=== PATIENT | male | born 1975 | race Caucasian/White ===

== ENCOUNTER 2021-06-04 18:01 | Outpatient (REF) | payer BC, SELFPAY ==
[2021-06-06 12:13] LABS: COVID-19 RT-PCR UVMMC Result Negative (Negative)
== END 2021-06-04 18:02 | disposition home or self-care (01) ==
LOC: LBN 18:01
PROVIDERS: PCP Family Medicine; Visit Provider Physician Assistant Medical
DX: Z20.822 Contact with and (suspected) exposure to COVID-19 (principal); J06.9 Acute upper respiratory infection, unspecified
CPT/HCPCS: U0003

== ENCOUNTER 2022-04-24 10:20 | Emergency (ER) | payer BC, SELFPAY ==
[2022-04-24 10:24] VITALS: BP 123/73; PULSE 64; RESP 18; TEMP 36.5; O2SAT 98
--- NOTE | 2022-04-24 10:40 | ED.GENADUL_ITS ---
Discharge Plan Disposition Patient Disposition: Home Discharge Details Clinical Impression: Laceration of right hand, Immunization, tetanus-diphtheria Primary Care Provider: Kimmy Manning ED Provider: Willie Mcintosh Home Meds and New Rx's Prescriptions: No Action No Known Home Meds Discharge Instructions Instructions: Laceration (ED) Additional Instructions: Please read all of the information that accompanies these instructions. You were seen in the emergency department for your hand laceration which was closed in the emergency department. Your tetanus was updated. Please schedule an appointment with your primary care provider next week to have your stitches bhupendra keshawn. Please return to the emergency department if if you develop any fevers foul-smelling drainage from your laceration or if you have any other concerns. For your pain please take medications as follows: 1. Take acetaminophen (Tylenol), 1,000 mg (two 500 mg tabs) every 6 hours 2. Take ibuprofen (Advil), 400 mg every 6 hours. Medical Decision Making This is an overall well-appearing normothermic and not tachycardic [id number] 47-year-old male with dominant right hand laceration which will require primary closure. He does not appear to have any obvious tendon disruption. Will obtain plain films to ensure that he does not have any retained foreign body given laceration sustained on glass window. Will update tetanus status. We will closed with nonabsorbable sutures and provide return indications including any purulent drainage any fevers or any other concerns. 1:[address] to [address] Miller from orthopedics evaluated the patient's laceration and felt that it would be amenable to primary closure and that there is no sign of extensor tendon injury. Patient had a vasovagal syncopal episode while I was suturing his hand. He had received oxycodone. We were in a room that was quite warm. Patient was wheeled to a cooler room and felt improved. He passed a p.o. challenge prior to discharge. Orthopedics evaluated his hand and felt that it was appropriate for primary closure. Will provide a splint that is removable to use as needed. I have given patient return indications. HPI General Date/Time Provider Initiated Documentation: 04/24/22 10:40 . HPI Narrative: This is a jiheh-[id number] otherwise healthy 47-year-old male arriving to the emergency department after an injury he sustained to his right hand earlier this morning. [place] and put his right hand through a plate glass window. He did not hit his head. He did not lose consciousness. He denies any preceding chest pain nausea and vomiting. He does not know when his last tetanus was. He denies any other injuries. Related Data Home Medications Medication Instructions Recorded Confirmed Unknown [No Known Home Meds] 06/20/16 04/24/22 Allergies Allergy/AdvReac Type Severity Reaction Status Date / Time Penicillins Allergy Severe Swelling/Ed Unverified 04/24/22 10:27 chloe General Stated Complaint: Laceration RUFINA: 4 [facility] All Active Problems (Updated 04/24/22 @ 10:54 by Willie Mcintosh MD) Laceration of right hand (Acute) Immunization, tetanus-diphtheria (Acute) Social History Smoking/Tobacco Use Status: Never Smoking risk assessment performed?: Yes Alcohol Intake: current Alcohol Intake frequency: holidays/special occasions only Alcohol type: beer Substance use type: does not use Do you feel safe in your relationship?: Yes Exam Narrative Exam Narrative: General: Well-appearing in no acute distress speaking in complete sentences. Head: Normocephalic, atraumatic Ear, nose, mouth, throat: Grossly normal inspection. Normal voice, handling secretions normally. Neck: Trachea midline. Cardiovascular: Well-perfused distal extremities. Respiratory: Nonlabored respiration. Gastrointestinal: Nondistended abdomen. Musculoskeletal: Right hand with approximately 4-1/2 cm soft tissue laceration on the dorsal surface with visible extensor tendons which are not lacerated. Laceration is hemostatic. Patient has full flexion extension function intact across the MCP PIP and DIP joints of his index long ring and little fingers of his right hand. Full range of motion in right thumb. Digits are warm and well- perfused with cap refill less than 2 seconds. 2+ radial pulse. No volar lacerations. Skin: Normal for age and race, grossly normal temperature and turgor. No acute rash. Neurologic: Alert and appropriate, no apparent acute deficits. Psychiatric: Mood and manner are appropriate. Grooming and personal hygiene are appropriate. Course Vital Signs Vital signs: Vital Signs Temperature 36.5 C 04/24/22 10:24 Pulse 64 04/24/22 10:24 Respiratory Rate 18 04/24/22 10:24 Blood Pressure 123/73 04/24/22 10:24 Pulse Oximetry 98 04/24/22 10:24 Temperature 36.5 C 04/24/22 10:24 Temperature Source Oral 04/24/22 10:24 Pulse 64 04/24/22 10:24 Respiratory Rate 18 04/24/22 10:24 Respiratory Effort Normal 04/24/22 10:27 Blood Pressure 123/73 04/24/22 10:24 Blood Pressure Position Sitting 04/24/22 10:24 Pulse Oximetry 98 04/24/22 10:24 Oxygen Delivery Method Room Air 04/24/22 10:24 Oxygen Flow Rate 0 04/24/22 10:24 Pain Level 8 04/24/22 10:24 Procedures Laceration Laceration 1: Site: hand Side (If applicable): right Size (cm): 4.5 Description: linear Local Anesthetic: with Epi Amount of anesthesia used (mL): 10 Pre-repair: irrigated extensively Skin layer closed with: other (5-0 Prolene) Size (cm): 5-0 Number of sutures: 8 Technique: simple, interrupted and other (3 vertical mattress sutures flanked by 5 simple interrupted sutures for a total of 8 sutures)
--- NOTE | 2022-04-24 10:45 | DI.RAD_ITS ---
Exam(s) XR HAND RT COMPLETE EXAM: XR HAND RT COMPLETE CLINICAL HISTORY: Fall through window concerning for foreign body. TECHNIQUE: 2D digital imaging was performed. Three views. COMPARISON: No exams were available for comparison FINDINGS: BONES: No acute fracture is present. No bony destructive lesion is seen. JOINTS: No dislocation present. SOFT TISSUE: Some air is noted within the soft tissues of the dorsum of the hand. No radiopaque fore ign body is visible. IMPRESSION: Soft tissue swelling. DATA REPOSITORY: RADIATION DOSE DELIVERED:
[2022-04-24] MEDS: Lidocaine/Epinephri/Tetracaine Topical Gel 3 ML TP (11:15)
[2022-04-24] MEDS: Acetaminophen 500 MG TAB 1000 MG PO (11:17)
[2022-04-24] MEDS: Ibuprofen 600 MG TAB PO (11:18)
[2022-04-24] MEDS: oxyCODONE 5 MG TAB PO (11:19)
[2022-04-24 13:14] VITALS: BP 104/59; PULSE 62; RESP 20; O2SAT 98
[2022-04-24 14:03] VITALS: BP 115/65; PULSE 68; RESP 16; TEMP 36.3; O2SAT 98
== END 2022-04-24 14:05 | disposition home or self-care (01) ==
PROVIDERS: Emergency Provider Emergency Medicine; PCP Family Medicine
DX: S61.411A Laceration without foreign body of right hand, initial encounter (principal); W01.110A Fall on same level from slipping, tripping and stumbling with subsequent striking against sharp glass, initial encounter; R55 Syncope and collapse
CPT/HCPCS: 12002; 90471; 99284; 73130

== ENCOUNTER 2023-07-12 05:00 | Outpatient (CLI) | payer BC, SELFPAY ==
[2023-07-12 07:55] LABS: Abs Immature Grans 0.02 10^3/uL (0.0-0.06); Absolute Basophil Count 0.06 10^3/uL (0.0-0.2); Absolute Eosinophil Count 0.17 10^3/uL (0.0-0.7); Absolute Lymphocyte Count 1.71 10^3/uL (1.2-3.4); Absolute Monocyte Count 0.42 10^3/uL (0.1-0.8); Absolute Neutrophil Count 3.02 10^3/uL (1.2-6.7); Basophils % 1.1 %; Eosinophils % 3.1 %; HGB 14.8 g/dL (13.5-17.5); Immature Grans % 0.4 %; Lymphocytes % 31.7 %; MCH 30.1 pg (27.0-33.0); MCHC 33.6 % (32.0-36.0); MCV 90 fL (80-95); MPV 9.7 fL (8.0-11.0); Monocytes % 7.8 %; Neutrophils % 55.9 %; Platelet Count 249 10^3/uL (130-400); RBC 4.91 10^6/uL (4.36-5.78); RDW 11.7 % (11.8-14.1)
[2023-07-12 08:31] LABS: ALT 30 U/L (16-63); AST 19 U/L (15-37); Albumin 4.1 g/dL (3.4-5.0); Alkaline Phosphatase 53 U/L (46-116); Anion Gap 5.2 mmol/L (3-11); BUN 26 mg/dL (7-18); Bilirubin, Total 0.5 mg/dL (0.2-1.0); CO2 32.8 mmol/L (21.0-32.0); Calcium 9.1 mg/dL (8.5-10.1); Calculated LDL 120 mg/dL (<100); Chloride 105 mmol/L (98-107); Cholesterol 193 mg/dL (<200); Estimated GFR 92.26 (mL/min/1.73m2); Glucose 115 mg/dL (74-106); HDL Cholesterol 67 mg/dL (40-60); Potassium 4.5 mmol/L (3.5-5.1); Sodium 143 mmol/L (136-145); TSH 1.69 uIU/Ml (0.36-3.74); Total Protein 7.1 g/dL (6.4-8.2); Triglyceride 34 mg/dL (<150)
== END 2023-07-12 05:01 | disposition home or self-care (01) ==
PROVIDERS: PCP Family Medicine; Visit Provider Internal Medicine
DX: Z00.00 Encounter for general adult medical examination without abnormal findings (principal)
CPT/HCPCS: 36415; 80053; 80061; 84443; 85025

== ENCOUNTER 2024-10-03 07:37 | Day surgery (SDC) | payer BC, SELFPAY ==
--- NOTE | 2024-10-02 19:12 | W.PM.DSUDISC ---
Date of service: 10/03/24 Discharge Plan Disposition Patient Disposition: Home Condition: Good Discharge Details Reason For Visit: screening colonoscopy Attending Provider: Seven Gaspar Primary Care Provider: Sam Myers Home Meds and New Rx's Prescriptions: Continued loratadine [Claritin] 10 mg tablet 10 mg PO DAILY fluticasone propionate [Flonase Allergy Relief] 50 mcg/actuation spray,suspension 1 spray intranasal DAILY PRN Rx Instructions: administer into each nostril Discontinued bisacodyl [Dulcolax (bisacodyl)] 5 mg tablet,delayed release (DR/EC) 5 mg PO ONCE Qty: 4 0RF Rx Instructions: Take per colonoscopy instructions provided by ordering providers office polyethylene glycol 3350 17 gram/dose powder 17 g PO ONCE Qty: 238 0RF Rx Instructions: Take per colonoscopy instructions provided by ordering providers office Discharge Instructions Instructions: Colon polyps Additional Instructions: Willem, it was very nice meeting you today, and I hope you feel well after the procedure. Things went very smoothly. Your prep was excellent and I could see everything fine. I did find, and remove 1 tiny bit of tissue today. To be honest with you on the little skeptical that this is actually a polyp. Regardless, to be safe, I will send this off to the pathologist for them to review. If it does rim turning machine operator to be a polyp, we will use that information to guide the timing of future colonoscopies. Those results will take about a week or 2 to get back, but once my office has sent we will be in touch with recommendations. If you need anything or have any questions at all, please do not hesitate to ask at any time. 1. If tolerated, consume a soft, low fiber diet for 1-2 days. 2[address] Do not drive, drink alcohol, operate machinery, make critical decisions, or do activities that require coordination or balance for 24 hours. 3. Because air was put into your colon during the procedure, expelling air from your rectum (passing gas or farting) is normal. 4. You may not have a bowel movement for 1-3 days because of the colonoscopy prep. This is normal. 5. Go directly to the emergency room if you notice any of the following: Develop chills (warm to touch), or if you have a thermometer and your temperature is above 101 Difficulty breathing or difficultly swallowing Persistent vomiting Severe abdominal pain, other than gas cramps Severe chest pain Black, tarry stools Any bleeding ? exceeding one tablespoon 6. Call your physician if the site where your intravenous was started becomes red, swollen, painful, and warm to touch. 7. Your physician has reviewed your pre-procedure medications. Please continue to take those medications as previously ordered. You will be given specific information/education regarding any changes to your medications before leaving. Stand Alone Forms: Anesthesia Discharge InstOsvaldo Rdz (DSU) Activity:: Activity as Tolerated Diet:: As Tolerated Discharge Orders Discharge Orders: Discharge Order (Routine); Ordered 10/02/24 Ordered By: Seven Gaspar DS: Diagnosis Discharge Diagnosis (1) Encounter for screening colonoscopy: Status: Acute Asessment and Plan: Follow-up on polypectomy results
--- NOTE | 2024-10-02 19:13 | W.COLOREPORT ---
Date of service: 10/03/24 Time of Service: 09:37 Colonoscopy Report Date of procedure: 10/03/24 Pre-op diagnosis general: screening colonoscopy Post-op diagnosis procedure note: other (Colon polyp) Procedure: colonoscopy with polypectomy Surgeon: Seven Gaspar Anesthesia Type: General:No Airway Estimated blood loss (mL): 5 Pathology: other (0.25 cm flat polyp at 55 cm) Complications: None Disposition: same day Indications: Toby is a 49 year old man with fmaily history of colon cancer who needs a screening colonoscopy Prep: Miralax/Dulcolax Procedure Start Time: :15 Procedure End Time: :29 Retraction Time: 9 Findings: 0.25 cm flat polyp at 55 cm Procedure Description: After the induction of anesthesia, and with Willem in left lateral decubitus position, I began by performing an external anorectal exam.? Perineum and skin were normal, as was the anal verge.? There was no evidence of external hemorrhoids.? Next, I performed a digital rectal exam.? I did not appreciate any abnormal findings.? Next, I advanced a colonoscope into the rectal vault.? I performed retroflexion.? This appeared normal.? Using insufflation, I then advanced the colonoscope beyond the rectal folds and into the sigmoid colon before advancing towards the cecum.? The scope was noted to be in the cecum by identification of the ileocecal valve and appendiceal orifice.? I then began withdrawing the colonoscope using repeated irrigation as necessary for full evaluation of the colonic mucosa. Around 55 cm beyond the anal verge was a tiny bit of tissue that had some polypoid features. Narrowband imaging was used to assist with the analysis. This is extremely small, but some features did seem consistent with a polyp. Therefore, I performed cold forcep polypectomy without any issues. ?Once the scope was withdrawn to the level of the rectum, great care was taken to examine portions of the rectal folds.? Finally, the scope was withdrawn and the patient was brought to the same-day surgery recovery unit as the anesthetic wore off. ?The findings and instructions were shared with the patient prior to discharge. [place] Bowel Prep [place] Bowel Prep Right Colon: 3 Left Colon: 3 Transverse Colon: 3 Total Score: 9
[2024-10-03 07:52] VITALS: BP 126/76; PULSE 60; RESP 14; TEMP 36.1; O2SAT 97
[2024-10-03] MEDS: Lactated Ringers 1,000 ML 80 ML IV (08:06)
--- NOTE | 2024-10-03 08:45 | ANES.PREOP_ITS ---
General Info Date of Service Date Performed: 10/03/24 Height: 6 ft 2 in Weight: 106.6 kg Body Mass Index (BMI): 30.2 Surgical Procedure: Operation Date: 10/03/24 09:05 Proposed Procedure Side Surgeon p Opal Gaspar MD Meds Allergies and Home Medications Allergies Allergy/AdvReac Type Severity Reaction Status Date / Time Penicillins Allergy Severe Swelling/Ed Unverified 10/03/24 07:50 chloe Home Medication ?Medication ?Instructions ?Recorded fluticasone propionate 50 1 spray intranasal DAILY PRN 07/09/24 mcg/actuation nasal spray,suspension (Flonase Allergy Relief) loratadine 10 mg tablet (Claritin) 10 mg PO DAILY 06/20 03/15 Current Visit Medications: Current Medications Generic Name Dose Route Start Last Admin Trade Name Freq PRN Reason Stop Dose Admin Ringer's Solution 1,000 mls @ 80 mls/hr 10/03/24 06:00 10/03/24 08:06 IV 10/03/24 23:59 80 mls/hr INFUSION KIA Administration IV Miscellaneous Supplies 1 each 10/03/24 06:00 Iv Access IV 10/03/24 23:59 DIRECTED KIA Ondansetron HCl 4 mg 10/02/24 19:14 Ondansetron 4 Mg/2 Ml Vial IVP 11/01/24 19:13 Q4H PRN PRN Nausea / Vomiting Sodium Chloride 0 ml 10/03/24 06:00 Normal Saline Flush 10 Ml Syr IV 10/03/24 23:59 PRN PRN Sodium Chloride 0 ml 10/03/24 06:00 Normal Saline 10 Ml Vial IJ 10/03/24 23:59 DIRECTED PRN Sterile Water 0 ml 10/03/24 06:00 Water,Injection,Sterile 10 Ml Vial IJ 10/03/24 23:59 DIRECTED PRN PFSH Active Problems Active Problems: Problem Status Onset Code Encounter for screening colonoscopy Acute Z12.11 Medical History Medical History Family history of colon cancer in father Allergic rhinitis Chronic sinusitis Erectile dysfunction Obesity [place] Tobacco Smoking/Tobacco Use Status: Never Alcohol Alcohol Intake: current Alcohol intake frequency: a few times a week Alcohol type: beer Substance Use Substance use type: does not use Vital Signs and Lab Results Vital Signs Most Recent Vital Signs in EMR: Most Recent Vital Signs Temp Pulse Resp BP Pulse Ox 36.1 C L 60 14 126/76 97 10/03/24 07:52 10/03/24 07:52 10/03/24 07:52 10/03/24 07:52 10/03/24 07:52 Anesthesia Assessment and Plan Anesthesia History Personal History: No History of Anesthesia Complications Family History: No Family History of Anesthesia Complications Exercise Tolerance Exercise Tolerance: Metabolic Equivalents>4 Pertinent Negatives Pertinent Negatives: No Symptoms of GERD, No Major Cardiovascular Symptoms or Complaints, No Major Pulmonary Symptoms or Complaints and No History of CVA/TIA Cardiac & Pulmonary Exam Cardiac Exam: Normal S1/S2 Heart Sounds Pulmonary Exam: Clear Bilateral Breath Sounds Implantable Cardiac Device Does patient have a Pacemaker or an ICD?: No Airway Exam Known Difficult Airway: No Mallampati Class: 2 Mouth Opening: Normal (> 3cm) Thyromental Distance: Greater than 3 cm Facial Hair: Full Zelaya Neck Range of Motion: Full ROM Neck Circumference: Normal Teeth Condition: Normal Dentition ASA Classification ASA Score: ASA 2 Emergency Case?: No NPO Status NPO Status: NPO Clears >2 hours, Solids >8 hours Anesthesia Plan Resuscitation Status: Full Code Anesthesia Technique: General Anesthesia Airway Planned: Natural Airway Monitors Used: Standard Monitors
[2024-10-03 08:47] VITALS: BMI 30.2
[2024-10-03 09:36] VITALS: BP 141/66; PULSE 65; RESP 17; TEMP 36.5; O2SAT 97
--- NOTE | 2024-10-03 09:36 | BOWEL_PTH ---
PATIENT: Toby Almonte LOC: [facility] U#:[id number] AGE/SX: 49/M ROOM: RE10/03/[address]: Seven Gaspar MD : 1975 BED: DIS: 10/03/2024 SPEC #: [id number] RECD: 10/03/24 12:29 STATUS: ALKA REQ #: [id number] AMARI: 10/03/24 09:[address]: Seven Gaspar DEPT: Surgical Specimen RECD BY: Cris Lanier Tissues: 1 - BIOPSY BOWEL Procedures: GROSS AND MICRO LEVEL 4 Comments: [id number]
--- NOTE | 2024-10-03 09:56 | W.ANESPOSTOP ---
Postoperative Evaluation Date, Time and Location Date Performed: 10/03/24 Time Performed: 09:45 Patient Location: Day Surgery Unit Vital Signs Most Recent Imported Vital Signs: Most Recent Vital Signs Temp Pulse Resp BP Pulse Ox 36.5 C 65 17 141/66 H 97 10/03/24 09:36 10/03/24 09:36 10/03/24 09:36 10/03/24 09:36 10/03/24 09:36 Pain Score Most Recent Pain Score: Most Recent Pain Score Pain Level 0 10/03/24 09:36 Assessment Mental Status: Awake (Alert & Oriented to Patient Baseline) Airway and Respiratory Function: Patent airway with normal (patient baseline) respiratory exam Cardiovascular Function: Hemodynamically Stable Hydration Status: Adequately Hydrated Nausea & Vomiting: No Nausea or Vomiting Pain: Pt. Denies Any Pain Peripheral Nerve Block: Patient did not receive a nerve block
[2024-10-03 10:01] VITALS: BP 137/84; PULSE 56; RESP 17; TEMP 36.3; O2SAT 95
== END 2024-10-03 10:04 | disposition home or self-care (01) ==
LOC: SUR 07:38
PROVIDERS: PCP Family Medicine; Visit Provider Surgery
PROC: 0DJD8ZZ Inspection of Lower Intestinal Tract, Via Natural or Artificial Opening Endoscopic (ICD-10-PCS; CPT 45378; principal; 2024-10-03 09:00)
DX: Z12.11 Encounter for screening for malignant neoplasm of colon (principal); K63.5 Polyp of colon
CPT/HCPCS: 45380; 88305; J2704